=== PATIENT | male | born 1985 | race Caucasian/White ===

== ENCOUNTER 2020-10-08 23:30 | Emergency (ER) | payer OTHER ==
[~2020-10-08] VITALS: Ht 175.3 cm; Wt 99.8 kg
[2020-10-09 00:04] VITALS: BP 144/85
[2020-10-09] MEDS ORDERED: LISINOPRIL10 MG PO (00:11)
== END 2020-10-09 02:01 | disposition left against medical advice (07) ==
LOC: ER 23:30
DX: R10.13 Epigastric pain (principal); Z53.21 Procedure and treatment not carried out due to patient leaving prior to being seen by health care provider